=== PATIENT | female | born 1945 | race Caucasian/White ===

== ENCOUNTER 2018-03-02 08:03 | Day surgery (SDC) | payer MEDICARE ==
[~2018-03-02] VITALS: Ht 160 cm; Wt 103.1 kg
[~2018-03-02 08:03] MED LIST: ASPI325 PO; CYAN1000 PO; FEXO180 PO; HYDCHL12.5 PO; METO50ER PO; MULVITMIND PO; OXYACE5T PO; RXOXYACE PO
[2018-03-02] MEDS ORDERED: ASPI81CH (08:28)
[2018-03-02] MEDS ORDERED: TUMS200 MG (08:29)
[2018-03-02] MEDS ORDERED: PRAV20 (08:30)
== END 2018-03-02 10:03 | disposition home or self-care (01) ==
LOC: ORSCSDS 08:03
PROVIDERS: Ophthalmology
PROC: 08RJ3JZ Replacement of Right Lens with Synthetic Substitute, Percutaneous Approach (ICD-10-PCS; principal; 2018-03-02 09:30)
DX: H25.11 Age-related nuclear cataract, right eye (principal); I10 Essential (primary) hypertension; E78.00 Pure hypercholesterolemia, unspecified; I47.9 Paroxysmal tachycardia, unspecified; E66.01 Morbid (severe) obesity due to excess calories; Z68.41 Body mass index [BMI] 40.0-44.9, adult; E11.9 Type 2 diabetes mellitus without complications; G47.33 Obstructive sleep apnea (adult) (pediatric); Z79.82 Long term (current) use of aspirin; Z79.899 Other long term (current) drug therapy
CPT/HCPCS: J2250; J3301; J7040; V2632

== ENCOUNTER 2018-03-16 07:36 | Day surgery (SDC) | payer MEDICARE ==
[~2018-03-16] VITALS: Ht 160 cm; Wt 103.1 kg
[~2018-03-16 07:36] MED LIST changes: +ASPI81CH; +PRAV20; +TUMS200 MG
== END 2018-03-16 09:26 | disposition home or self-care (01) ==
LOC: ORSCSDS 07:36
PROVIDERS: Ophthalmology
PROC: 08RK3JZ Replacement of Left Lens with Synthetic Substitute, Percutaneous Approach (ICD-10-PCS; principal; 2018-03-16 09:00)
DX: H25.12 Age-related nuclear cataract, left eye (principal); I10 Essential (primary) hypertension; E11.9 Type 2 diabetes mellitus without complications; G47.33 Obstructive sleep apnea (adult) (pediatric); K21.9 Gastro-esophageal reflux disease without esophagitis; E66.01 Morbid (severe) obesity due to excess calories; Z68.41 Body mass index [BMI] 40.0-44.9, adult; Z79.899 Other long term (current) drug therapy; Z79.891 Long term (current) use of opiate analgesic
CPT/HCPCS: J2250; J3010; J3301; V2632

== ENCOUNTER → 2018-04-05 | Outpatient (CLI) | payer MEDICARE | END | disposition home or self-care (01) | LOC: PLD 10:04 → LAB SHORT 10:04 | DX: C44.519 Basal cell carcinoma of skin of other part of trunk (principal) | CPT/HCPCS: 87070; 87205; 88305 ==

== ENCOUNTER 2021-09-15 17:23 | Emergency (ER) | payer MEDICARE ==
[~2021-09-15] VITALS: Ht 160 cm; Wt 99.3 kg
[2021-09-15 18:00] LABS: Source, Urine Clean Catch
[2021-09-15 18:06] LABS: Appearance, Urine Clear (Clear); Bilirubin, Urine Neg (Neg); Blood, Urine 4+ (Neg); Color, Urine Yellow (P-Yellow); Glucose Qualitative, Urine Neg (Neg); Ketones, Urine Neg (Neg); Leukocyte Esterase, Urine 2+ (Neg); Nitrite, Urine Neg (Neg); Protein, Urine 1+ (Neg); Specific Gravity, Urine 1.025 (1.003-1.022); Urobilinogen, Urine NORM (Normal)
[2021-09-15 18:30] LABS: BASOPHILS ABSOLUTE AUTO 0.05 K/mm3 (0.00-0.23); BASOPHILS PERCENT AUTO 1 % (0-2); EOSINOPHILS ABSOLUTE AUTO 0.09 K/mm3 (0.00-0.68); EOSINOPHILS PERCENT AUTO 1 % (0-6); Hematocrit 41.2 % (33.0-51.0); Hemoglobin 13.7 g/dL (11.5-16.0); IMMATURE GRAN ABSOLUTE AUTO 0.01 K/mm3 (0.00-0.10); IMMATURE GRAN PERCENT AUTO 0 % (0-1); LYMPHOCYTES ABSOLUTE AUTO 2.11 K/mm3 (0.84-5.20); LYMPHOCYTES PERCENT AUTO 28 % (21-46); MONOCYTES ABSOLUTE AUTO 0.68 K/mm3 (0.16-1.47); MONOCYTES PERCENT AUTO 9 % (4-13); Mean Corpuscular HGB 30.2 pg (26.0-34.0); Mean Corpuscular HGB Conc 33.3 g/dL (31.5-36.5); Mean Corpuscular Volume 91 fL (80-100); Mean Platelet Volume 10.6 fL (9.1-12.4); NEUTROPHILS ABSOLUTE AUTO 4.64 K/mm3 (1.96-9.15); NEUTROPHILS PERCENT AUTO 61 % (41-73); Platelet Count 301 K/mm3 (150-400); RDW Coefficient Variation 12.3 % (11.7-14.2); RDW Standard Deviation 41.1 fL (35.1-46.3); Red Blood Cell Count 4.53 M/mm3 (3.80-5.20); White Blood Cell Count 7.58 K/mm3 (4.00-11.30)
[2021-09-15 18:52] LABS: Alanine Aminotransfer (ALT/SGP 43 U/L (12-78); Albumin, Blood 3.5 g/dL (3.4-5.0); Alk Phos 49 U/L (50-136); Anion Gap 8 mmol/L (6-16); Aspartate Aminotrans (AST/SGOT 32 U/L (12-37); Bilirubin, Total 0.3 mg/dL (0.1-1.0); Blood Urea Nitrogen 15 mg/dL (8-24); Bun/Creatinine Ratio 24.8 (12.0-20.0); CO2, Blood 25 mmol/L (21-32); Chloride, Blood 106 mmol/L (98-108); Globulin, Blood 3.6 g/dL (2.2-4.0); Glomerular Filtration Rate >60 (60-); Glucose, Blood 170 mg/dL (70-99); Potassium, Blood 3.8 mmol/L (3.5-5.5); Sodium, Blood 139 mmol/L (136-145); Total Protein, Blood 7.1 g/dL (6.4-8.2)
[2021-09-15 19:11] LABS: Bacteria Few /hpf; Squamous Epithelial Cells Few /hpf (Few)
[2021-09-15 19:12] LABS: Amorphous Light (0-Heavy); Mucus Heavy (0-Heavy)
[2021-09-15] MEDS ORDERED: CEPH500 PO (19:18)
== END 2021-09-15 19:30 | disposition home or self-care (01) ==
LOC: ER 17:23
PROVIDERS: Physician Assistant
DX: N39.0 Urinary tract infection, site not specified (principal); I10 Essential (primary) hypertension; Z88.8 Allergy status to other drugs, medicaments and biological substances; Z79.899 Other long term (current) drug therapy
CPT/HCPCS: 36415; 74176; 80053; 81001; 85025; 87086; 99284-25; A9270

== ENCOUNTER → 2021-09-18 | Outpatient (CLI) | payer MEDICARE ==
[~2021-09-18] MED LIST changes: +CEPH500 PO
== END | disposition home or self-care (01) ==
LOC: LAB SHORT 15:56 → LAB 15:56
DX: R31.9 Hematuria, unspecified (principal)
CPT/HCPCS: 87086

== ENCOUNTER 2022-03-06 21:54 | Observation (INO) | payer MEDICARE ==
[~2022-03-06] VITALS: Ht 162.6 cm; Wt 96.5 kg
[2022-03-06 22:40] LABS: BASOPHILS ABSOLUTE AUTO 0.04 K/mm3 (0.00-0.23); BASOPHILS PERCENT AUTO 1 % (0-2); EOSINOPHILS PERCENT AUTO 1 % (0-6); Hemoglobin 13.3 g/dL (11.5-16.0); IMMATURE GRAN ABSOLUTE AUTO 0.01 K/mm3 (0.00-0.10); IMMATURE GRAN PERCENT AUTO 0 % (0-1); LYMPHOCYTES ABSOLUTE AUTO 2.72 K/mm3 (0.84-5.20); LYMPHOCYTES PERCENT AUTO 31 % (21-46); MONOCYTES ABSOLUTE AUTO 0.89 K/mm3 (0.16-1.47); MONOCYTES PERCENT AUTO 10 % (4-13); Mean Corpuscular HGB Conc 33.3 g/dL (31.5-36.5); Mean Corpuscular Volume 93 fL (80-100); Mean Platelet Volume 10.3 fL (9.1-12.4); NEUTROPHILS PERCENT AUTO 58 % (41-73); Platelet Count 312 K/mm3 (150-400); RDW Standard Deviation 41.6 fL (35.1-46.3); Red Blood Cell Count 4.29 M/mm3 (3.80-5.20); White Blood Cell Count 8.86 K/mm3 (4.00-11.30)
[2022-03-06 22:59] LABS: Albumin, Blood 3.4 g/dL (3.4-5.0); Albumin/Globulin Ratio 0.9 (0.8-1.8); Bilirubin, Total 0.3 mg/dL (0.1-1.0); Calcium, Blood 9.1 mg/dL (8.5-10.1); Creatinine, Blood 0.68 mg/dL (0.40-1.00); Globulin, Blood 3.8 g/dL (2.2-4.0); Potassium, Blood 3.4 mmol/L (3.5-5.5); Total Protein, Blood 7.2 g/dL (6.4-8.2)
[2022-03-07 07:02] LABS: BASOPHILS ABSOLUTE AUTO 0.05 K/mm3 (0.00-0.23); BASOPHILS PERCENT AUTO 1 % (0-2); EOSINOPHILS ABSOLUTE AUTO 0.06 K/mm3 (0.00-0.68); EOSINOPHILS PERCENT AUTO 1 % (0-6); Hematocrit 39.4 % (33.0-51.0); Hemoglobin 12.7 g/dL (11.5-16.0); IMMATURE GRAN ABSOLUTE AUTO 0.01 K/mm3 (0.00-0.10); IMMATURE GRAN PERCENT AUTO 0 % (0-1); LYMPHOCYTES PERCENT AUTO 20 % (21-46); MONOCYTES ABSOLUTE AUTO 0.74 K/mm3 (0.16-1.47); MONOCYTES PERCENT AUTO 11 % (4-13); Mean Corpuscular HGB 30.5 pg (26.0-34.0); Mean Corpuscular HGB Conc 32.2 g/dL (31.5-36.5); Mean Corpuscular Volume 95 fL (80-100); Mean Platelet Volume 10.5 fL (9.1-12.4); NEUTROPHILS ABSOLUTE AUTO 4.79 K/mm3 (1.96-9.15); NEUTROPHILS PERCENT AUTO 68 % (41-73); Platelet Count 251 K/mm3 (150-400); RDW Coefficient Variation 12.2 % (11.7-14.2); RDW Standard Deviation 42.2 fL (35.1-46.3); Red Blood Cell Count 4.17 M/mm3 (3.80-5.20); White Blood Cell Count 7.05 K/mm3 (4.00-11.30)
[2022-03-07 07:20] LABS: Albumin, Blood 3.1 g/dL (3.4-5.0); Albumin/Globulin Ratio 0.9 (0.8-1.8); Bilirubin, Total 0.3 mg/dL (0.1-1.0); Bun/Creatinine Ratio 25.2 (12.0-20.0); Calcium, Blood 8.4 mg/dL (8.5-10.1); Creatinine, Blood 0.52 mg/dL (0.40-1.00); Globulin, Blood 3.4 g/dL (2.2-4.0); Potassium, Blood 4.2 mmol/L (3.5-5.5); Total Protein, Blood 6.5 g/dL (6.4-8.2)
--- NOTE | 2022-03-07 09:04 | NUR ---
SUMMARY PT ADMITTED THIS SHIFT WITH RECENT CHEST PAIN. CURRENTLY REPORTS GREATLY IMPROVED.PT ALERT ,TALKATIVE,NO DISTRESS. RECIEVING W/U-TRENDING TROPS CT TO BE DONE FOR D DIMER OF 1.02.
[2022-03-07] MEDS ORDERED: IBUP600 PO (14:34)
[2022-03-07 15:09] LABS: CPK Creatine Kinase 139 U/L (26-193)
--- NOTE | 2022-03-07 19:09 | NUR ---
DISCHARGE SUMMARY PT A&OX4, VSS/RA, TELE NSR 68, VOIDING WELL, GUERRERO PO, DENIES NEW CP, DENIES SOB, AMB INDEPENDENTLY TO BRP/UP IN ROOM. LEFT FLOOR VIA WC WITH MICROWAVE TECHNICIAN TO GO HOME WITH ALL PERSONAL POSSESSIONS AND DC PACKET. DC INS PROVIDED; PT REP UNDERSTANDING THOSE INSTRUCTIONS. IV DC'D.
== END 2022-03-07 18:49 | disposition home or self-care (01) ==
LOC: ER 21:54 → MEDS 21:55 → SURS 21:55
PROVIDERS: Emergency Medicine; ADMIT Internal Medicine
DX: R07.2 Precordial pain (principal); I10 Essential (primary) hypertension; E87.6 Hypokalemia; E04.1 Nontoxic single thyroid nodule; I08.3 Combined rheumatic disorders of mitral, aortic and tricuspid valves; I27.20 Pulmonary hypertension, unspecified; J98.11 Atelectasis; Z88.5 Allergy status to narcotic agent; Z88.8 Allergy status to other drugs, medicaments and biological substances; Z79.82 Long term (current) use of aspirin
CPT/HCPCS: 36415; 71046; 71260; 80053; 82550; 83690; 83880; 84484; 85025; 85379; 93005; 93010; 93306; 96365; 96366; 96372; 96375; 99285-25; A9270; G0378; J1650; J3010; J3480; J7030; Q9967